=== PATIENT | male | born 1960 | race Two or more races ===

== ENCOUNTER 2024-06-02 23:18 | Emergency (ER) | payer MEDICAID, SELFPAY ==
[2024-06-02 23:36] VITALS: BP 155/82; PULSE 73; RESP 18; TEMP 36.8; O2SAT 97
--- NOTE | 2024-06-02 23:38 | PD.EDRME ---
Rapid Medical Screening Exam RME Arrival date/time: 06/02/24 23:18 64 yo m present to ED for c/o elevated blood glucose, headache, abd. chest pain today I have greeted and performed a focused initial assessment of this patient. A comprehensive ED assessment and evaluation of the patient, analysis of all test results, and completion of the medical decision making process will be conducted by additional ED providers. Chief Complaint: General Adult/Misc Complain Time Seen by Provider: 06/02/24 23:32 Vital signs: Vital Signs Temperature 98.3 F 06/02/24 23:36 Pulse Rate 73 06/02/24 23:36 Respiratory Rate 18 06/02/24 23:36 Blood Pressure 155/82 H 06/02/24 23:36 Pulse Oximetry (%) 97 06/02/24 23:36 Oxygen Delivery Method Room Air 06/02/24 23:36
--- NOTE | 2024-06-03 00:42 | PD.EDABDPN ---
ED Abdominal Pain RME/HPI General Chief Complaint: General Adult/Misc Complain Stated complaint: BLOOD SUGAR HIGH Time seen by provider: 06/02/24 23:32 Arrival date/time: 06/02/24 23:18 RME / HPI RME / HPI narrative: 06/02/24 23:18 64 yo m present to ED for c/o elevated blood glucose, headache, abd. chest pain today I have greeted and performed a focused initial assessment of this patient. A comprehensive ED assessment and evaluation of the patient, analysis of all test results, and completion of the medical decision making process will be conducted by additional ED providers. This section includes all my notes and documentations, including HPI, PE, and ED course. Sander Villanueva MD HPI: 64 y/o male w/ Hx of GERD, Hypothyroidism, Type II DM, and Hypertension presents to ED c/o blood sugar of 350, headache, nausea, and dry-heaving x approximately 5 hours ago. Patient also c/o abdominal pain and chest pain and dysuria. Denies any cough or fever. Patient takes 20 units of insulin each morning and 10 units at night. No other complaints. ROS: All negative except as documented in HPI. Physical Exam: General: Alert and oriented. Appearance of malaise noted. Eyes: Conjunctivae and lids clear. EOMI. PERRL. ENT: No nasal congestion. Pharynx normal. Tympanic membrane normal bilaterally. Neck: Supple. No carotid bruit. No JVD. Heart: RRR. Lungs: No respiratory distress. Good air movement. No rhonchi, wheezing, rales. Chest: No tenderness. Abdomen: Soft with diffuse tenderness, difficult to localize. Normal bowel sounds. No distension. No rebound or guarding. Back: No CVA tenderness. Legs: No clubbing, cyanosis, edema. Skin: Warm and dry. Neuro: Alert and oriented X 3. Cranial Nerves II-XII grossly intact. No peripheral motor deficits. I ordered Zofran ODT and two Tylenol #3 and regular insulin 10 units SC and diagnostic tests. At 6 AM on 06/03/24, the care of the patient was transferred to Dr. Hearn. Sander Villanueva MD Related Data Home Medications ?Medication ?Instructions ?Recorded ?Confirmed Metformin Hcl 850 mg PO BID ##0 09/09/17 05/02/19 levothyroxine 100 mcg capsule 100 mcg PO QDAY 09/09/17 05/02/19 lisinopril 20 mg tablet 20 mg PO QDAY 09/09/17 05/02/19 omeprazole 20 mg tablet,delayed 20 mg PO QDAY #0 tabs 09/09/17 05/02/19 release Previous Rx's ?Medication ?Instructions ?Recorded ibuprofen 800 mg tablet 800 mg PO TID PRN pain #30 tabs 05/02/19 psyllium husk 3 gram/5.4 gram oral 1 tbsp PO QDAY #284 grams 08/09/20 powder ibuprofen 800 mg tablet 800 mg PO Q8H PRN pain #30 tabs 08/07/21 tramadol 37.5 mg-acetaminophen 325 1 tab PO TID PRN pain #15 tabs 08/07/21 mg tablet (Ultracet) tramadol 50 mg tablet 50 mg PO BID PRN pain #20 tabs 05/01/22 amlodipine 2.5 mg tablet 2.5 mg PO QDAY #30 tabs 06/28/22 Allergies Allergy/AdvReac Type Severity Reaction Status Date / Time No Known Allergies Allergy Verified 06/02/24 23:19 Review of Systems Review of Systems Systems Reviewed: All systems reviewed, normal except as documented Narrative Review of Systems: Refer to HPI above. Past Medical History Past Medical History CARDIAC: Positive Hypertension GASTROINTESTINAL: Positive Gastroesophageal Reflux Disease ENDOCRINE: Positive Diabetes Mellitus Type 2 and Hypothyroidism ED Exam Narrative Physical exam: Refer to HPI above. Course Quality Measures none Orders Category Date Time Status Bedside COVID-19 Antigen Test NOW Care 06/02/24 23:37 Completed Bedside Influenza A&B Antigen Test NOW Care 06/02/24 23:37 Completed Blood glucose [Bedside Blood Glucose] NOW Care 06/02/24 23:32 Completed Glucose [Bedside Blood Glucose] NOW Care 06/03/24 02:[address] chest abdomen pelvis wo Stat Exams 06/03/24 01:[address] head/brain wo con Stat Exams 06/03/24 01:33 Taken Amylase Stat Lab 06/03/24 01:43 Completed Beta Hydroxybutyrate Stat Lab 06/03/24 01:43 Completed CBC Stat Lab 06/03/24 01:43 Completed CMP [Comprehensive Metabolic Panel] Stat Lab 06/03/24 01:43 Completed Lactate (Lactic Acid) Stat Lab 06/03/24 01:43 Completed Lipase Stat Lab 06/03/24 01:43 Completed Magnesium Stat Lab 06/03/24 01:43 Completed UA [Urinalysis] Stat Lab 06/02/24 23:45 Completed VBG [Venous Blood Gas] Stat Lab 06/03/24 01:43 Completed ACETAMINOPHEN w/COD 300-30 [Tylenol w/Cod #3] Med 06/03/24 01:32 Discontinued 2 tab PO X1 ONE Insulin Regular Med 06/03/24 01:32 Discontinued 10 unit SC X1 ONE Ondansetron Odt [Zofran Odt] Med 06/03/24 01:32 Discontinued 4 mg PO X1 ONE Vital Signs Vital signs: Vital Signs Temperature 98.3 F 06/02/24 23:36 Pulse Rate 73 06/02/24 23:36 Respiratory Rate 18 06/02/24 23:36 Blood Pressure 155/82 H 06/02/24 23:36 Pulse Oximetry (%) 97 06/02/24 23:36 Oxygen Delivery Method Room Air 06/02/24 23:36 Abdominal Pain MDM MDM Narrative MDM Narrative:: Scribe Attestation: IMarcy, am scribing for and in the presence of Dr. Villanueva. Provider Notation: Although this document has been carefully reviewed, there may still be some phonetic and other typographical errors. These errors are purely grammatical due to imperfections in the software program and should not be construed in any way to compromise the substance of the patient's medical care during this visit. 64 y/o male w/ Hx of GERD, Hypothyroidism, Type II DM, and Hypertension presents to ED c/o blood sugar of 350, headache, nausea, and dry-heaving x approximately 5 hours ago. Patient also c/o RLQ abdominal pain and dysuria x 2 years and upper abdominal pain x 6 months. Denies any cough or fever. Patient takes 20 units of insulin each morning and 10 units at night. Patient data External records reviewed:: [facility] previous records (Prior ED records reviewed from 07/31/22. Patient was seen for Chronic cough.) Clinical information provided by:: patient Social determinants that could affect healthcare access:: none Patient has the following chronic illnesses:: GERD, Hypothyroidism, Type II DM, and Hypertension How is presenting disease/condition affected by chronic disease/condition?: exacerbated by Evaluation data The following diagnostics were reviewed and interpreted by me:: lab results and radiology exam(s) Lab and/or radiology exams considered but not ordered:: None Interpretation Summary: Complete diagnostic tests are pending. Medications / Prescriptions Medications or Prescriptions considered but not ordered:: None Medication administrations:: Medication Administration History Discontinued Medications Acetaminophen/Codeine Phosphate (Acetaminophen W/Cod 300-30 Tablet) 2 tab PO X1 ONE Stop: 06/03/24 01:33 Last Admin: 06/03/24 02:01 Dose: 2 tab Documented By: MELY Insulin Human Regular (Insulin Hum Regular 1 Unit/0.01 Ml (Per Unit)) 10 unit SC X1 ONE Stop: 06/03/24 01:33 Last Admin: 06/03/24 02:02 Dose: 10 unit Documented By: MELY Co-signed By: BLAISE Ondansetron HCl (Ondansetron Odt 4 Mg Tabrap) 4 mg PO X1 ONE; Protocol Stop: 06/03/24 01:33 Last Admin: 06/03/24 02:01 Dose: 4 mg Documented By: MELY Zofran, Tylenol with Codeine, Insulin. Consultations Consultation(s) initiated? (list below): No Diagnosis Differential diagnosis abdominal pain: abdominal pain, acute appendicitis, calculus of kidney, constipation, diverticulitis, gastroenteritis, pancreatitis, small bowel obstruction and other (CVA, brain tumor, RI, DKA, UTI, pneumonia, sepsis) Most likely diagnosis given after review of the tests above:: Complete diagnostic test results are pending. Admission Indicated Admission indicated?: not indicated Explain why admission is indicated or not indicated:: Complete diagnostic test results are pending. Admission Request Was there a request for admission?: No Disposition Plan Disposition Plan: other (specify) (Care of the patient was transferred to Dr. Hearn. ) Discharge Plan Prescriptions/Referrals Prescriptions/Med Rec: No Action levothyroxine 100 mcg capsule 100 mcg PO QDAY lisinopril 20 mg tablet 20 mg PO QDAY ibuprofen 800 mg tablet 800 mg PO TID PRN (Reason: pain) Qty: 30 0RF Metformin Hcl 850 MG tablet 850 mg PO BID Qty: 0 omeprazole 20 mg tablet,delayed release (DR/EC) 20 mg PO QDAY Qty: 0 tramadol-acetaminophen [Ultracet] 37.5-325 mg tablet 1 tab PO TID PRN (Reason: pain) Qty: 15 0RF Rx Instructions: Instructions in Mexican ibuprofen 800 mg tablet 800 mg PO Q8H PRN (Reason: pain) Qty: 30 0RF Rx Instructions: Instructions in Mexican psyllium husk 3 gram/5.4 gram powder 1 tbsp PO QDAY Qty: 284 0RF Rx Instructions: mix into at least 8 oz of water or juice before administering tramadol 50 mg tablet 50 mg PO BID PRN (Reason: pain) Qty: 20 0RF amlodipine 2.5 mg tablet 2.5 mg PO QDAY Qty: 30 0RF Referrals: No Primary/Family,Physician [Primary Care Provider] - In 1 week Problem List Clinical Impression: Hyperglycemia, Headache, Chest pain, Abdominal pain Patient/Caregiver Discharge Instructions Print Language: Mexican
--- NOTE | 2024-06-03 01:33 | XR_ITS ---
Examination: CT chest, without intravenous contrast. CT abdomen, without intravenous contrast. CT pelvis, without intravenous contrast. 2-D sagittal and coronal reconstructions. 3-D reconstructions. Date and time of exam:June 03, 2024 0338 hours INDICATIONS: Severe chest and abdominal pain today COMPARISON: CT chest August 26, 2022 CTDI vol (mgy) 6.20 DLP (MGycm)121 Technique: Multiple CT images, 3.0 mm slice thickness, obtained chest, abdomen, pelvis, with the high-resolution 64 slice scanner.. Sagittal and coronal 2-D reconstructions are obtained. 3-D reconstructions Low dose protocols were performed. One or more of the following dose reduction techniques were used; automated exposure control, adjustment of the mA and/or KV according to patient size, use of iterative reconstruction technique. Findings: Again noted cavitary lesion left apex, 4 cm, thick-walled Multiple bilateral pulmonary nodules, subcentimeter No lobar pneumonia No focal liver or splenic lesion No gallstones No pancreatic or adrenal mass No renal or ureteral calculi, no hydronephrosis Normal appendix No bowel obstruction Abundant stool throughout the colon Bladder intact AP prostate dimension 4.1 cm IMPRESSION: Cavitary lesion left apex again noted with multiple subcentimeter pulmonary nodules, differential would include infectious processes, underlying pulmonary neoplasm not excluded, recommend follow-up CT chest without contrast in 3 months Abundant stool throughout the colon
--- NOTE | 2024-06-03 01:33 | XR_ITS ---
Examination: CT brain head without contrast. 2-D sagittal coronal reconstructions Date and time of exam:June 03, 2024 0336 hours INDICATIONS: Severe head pain today CTDI: vol (mGy):52.9 DLP: (mGycm):1095 Technique: Multiple CT axial sections of the brain have been obtained, 5 mm slice thickness. Contrast has not been administered. 2-D sagittal, coronal reconstructions have been obtained Low dose protocols were performed. One or more of the following dose reduction techniques were used; automated exposure control, adjustment of the mA and/or KV according to patient size, use of iterative reconstruction technique. Findings: No significant ventricular enlargement. Intra-axial or extra-axial hemorrhage density is not seen. No mass effect or midline shift Basal cisterns are not remarkable. Fourth ventricle is midline. Cranial vault intact. Impression: Negative for acute hemorrhage, mass effect or midline shift
[2024-06-03 01:57] LABS: Lactate (Lactic Acid) 1.1 mMol/L (0.4-2.0)
[2024-06-03 01:58] LABS: Base Excess, Venous 2 (-3-3); Basophils % (Auto) 0 % (0-2.5); Eosinophils # (Auto) 0.2 Thou/mm3 (0.0-0.5); Eosinophils % (Auto) 2 % (0-10); Hematocrit 35.6 % (41.0-53.0); Hemoglobin 12.3 g/dL (13.5-16.0); Immature Granulocytes % (Auto) 0 % (0-0); Immature Granulocytes Auto 0.02 Thou/mm3 (0.00-0.00); Lymphocytes # (Auto) 1.7 Thou/mm3 (1.0-4.8); Lymphocytes % (Auto) 23 % (10-50); Mean Corpuscular HGB Conc 34.6 g/dl (31.0-37.0); Mean Corpuscular Hemoglobin 30.6 pg (25.0-35.0); Mean Corpuscular Volume 89 fL (80-100); Monocytes # (Auto) 0.5 Thou/mm3 (0.0-0.8); Monocytes % (Auto) 7 % (0-12); Neutrophils # (Auto) 5.1 Thou/mm3 (1.8-7.7); Neutrophils % (Auto) 68 % (37-80); Nucleated Red Blood Cell % 0 /100 WBC (0); O2 Saturation, Venous 88 % (96-97); PCO2, Venous 42 mmHg (36-56); PO2, Venous 53 mmHg (15-58); Platelet Count 190 Thou/mm3 (140-440); RDW Standard Deviation 44.5 fL (35.1-43.9); Red Blood Count 4.02 Miln/mm3 (4.50-5.90); White Blood Count 7.5 Thou/mm3 (3.8-10.6); pH, Venous 7.41 (7.33-7.66)
[2024-06-03] MEDS: ACETAMINOPHEN w/COD 300-30 TABLET 2 TAB PO (02:01)
[2024-06-03] MEDS: ONDANSETRON ODT 4 MG TABRAP PO (02:01)
[2024-06-03] MEDS: INSULIN HUM REGULAR 1 UNIT/0.01 ML (PER UNIT) 10 UNIT SC (02:02)
[2024-06-03 02:38] LABS: Alanine Aminotransferase 14 U/L (10-49); Albumin, Serum 3.7 gm/dL (3.4-4.8); Albumin/Globulin Ratio 1.2 (1.2-2.2); Alkaline Phosphatase 116 U/L (46-116); Amylase 52 U/L (30-118); Anion Gap 5 (7-16); Aspartate Amino Transferase 12 U/L (0-34); BUN/Creatinine Ratio 16 Ratio (12-20); Bilirubin,Total 0.3 mg/dL (0.3-1.2); Blood Urea Nitrogen 26 mg/dL (9-23); Calcium 8.9 mg/dL (8.3-10.6); Calcium (Corrected) 9.1 mg/dL (8.5-10.1); Carbon Dioxide 25.9 mMol/L (20.0-31.0); Chloride 106 mMol/L (98-107); Creatinine (Component) 1.6 mg/dL (0.6-1.3); Glucose 330 mg/dL (74-106); Lipase 33 U/L (12-53); Magnesium 1.9 mg/dL (1.6-2.6); Osmolality,Calculated 291 (275-295); Potassium 4.2 mMol/L (3.4-5.1); Sodium 137 mMol/L (136-145); Total Protein 6.7 gm/dL (5.7-8.2); eGFR 48 See Note
[2024-06-03 03:18] LABS: Collection Type, Urine Voided; Squamous Epithelial Cell,Urine 0 /hpf (0-5); WBC,Urine 0 /hpf (0-5)
[2024-06-03 03:32] LABS: Bilirubin,Urine Negative (Negative); Blood,Urine Trace (Negative); Clarity,Urine Clear (Clear/Hazy); Color,Urine Lt-Yellow (Lt Yel-Yel); Glucose, Urine 4+ (Negative); Ketones,Urine Negative (Negative); Leukocyte Esterase,Urine Negative (Negative); Nitrite,Urine Negative (Negative); PH,Urine 6.5 (5.0-7.0); Protein,Urine 2+ (Neg - Trace); RBC,Urine 7 /hpf (0-3); Specific Gravity,Urine 1.015 (1.001-1.035); Urobilinogen,Urine Negative mg/dL (0.0-1.0)
--- NOTE | 2024-06-03 03:49 | PRELIM_ITS ---
CT scan of the head without intravenous contrast (axial sections with sagittal and coronal reformats). June 03, 2024 0336 hours Clinical History: Severe headache Comparison: None Findings: There is involutional atrophy of the cerebral hemispheres and cerebellum. There is no intracranial hemorrhage, extra-axial collection, mass, mass-effect or midline shift. There is good vallejo-white differentiation. There is no CT evidence of acute large vascular territorial infarct. Ventricles are not enlarged or effaced. There is atherosclerotic calcification along the carotid siphons. Visualized paranasal sinuses and tympanomastoid cavities are clear. The bony calvarium is intact. Impression: No intracranial hemorrhage, mass-effect or midline shift. No CT evidence of acute large vascular territorial infarct. Report Electronically Signed By: Yony Izquierdo 06/03/2024 3:48:46 AM [EST]
--- NOTE | 2024-06-03 04:26 | PRELIM_ITS ---
CT scan of the chest, abdomen and pelvis without intravenous contrast (axial sections with sagittal and coronal reformats). June 03, 2024 0338 hours Clinical History: Chest/abdominal pain Comparison: None Findings: Study is limited without IV contrast. Chest: Heart is normal in size. There is no pericardial or pleural effusion. There is no thoracic aortic aneurysm. Thyroid is not visualized. There is no thoracic lymphadenopathy. There is a cavitating lesion in within the left lung apex measuring 4 cm in AP dimension and 2.9 cm in transverse dimension with adjacent reticular densities/pleural thickening there maybe some layering fluid within the cavitating left apical lesion. There is some peribronchial thickening within the left upper lobe. There is minimal scarring within the right lung apex. There is no pneumothorax. There is minimal subsegmental atelectasis within the lung bases. There is a 4.5 mm nonspecific solid-appearing right apical pulmonary nodule (series 2 image 23). Subcentimeter pulmonary nodules are also noted more inferiorly within the right upper lobe (image 51, image 53, image 55). Few juxtapleural nodular densities are noted within the right lower lobe. There is a subcentimeter pulmonary nodule within the left lower lobe (image 108). There is subsegmental atelectasis within the lungs. There is no acute osseous abnormality. There is degenerative change in the thoracic spine. Abdomen/pelvis: The unenhanced liver, gallbladder, spleen, pancreas and adrenals are unremarkable. 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 Right kidney also appears somewhat ptotic. Urinary bladder is of normal partially filled configuration. Prostate is nonenlarged. There is underdistention of the stomach which limits evaluation. There is some ingested type material within the stomach. There is large fecal load within the colon. There is no bowel obstruction. Appendix is normal. There is no free intraperitoneal air or fluid. There is degenerative change within the spine. Impression: 1. Cavitating left apical lung lesion may be post infectious/inflammatory although cavitating malignancy should be excluded. Nonspecific solid-appearing subcentimeter pulmonary nodules bilaterally, right greater than left. Recommend follow-up CT chest in 3 months or reevaluate findings. 2. Large fecal load in the colon suggesting constipation. Report Electronically Signed By: Yony Izquierdo 06/03/2024 4:26:26 AM [EST]
[2024-06-03 05:39] VITALS: BP 131/69; PULSE 77; RESP 16; O2SAT 98
[2024-06-03 06:40] VITALS: RESP 18
== END 2024-06-03 06:41 | disposition home or self-care (01) ==
PROVIDERS: Physician Assistant; Emergency Provider Emergency Medicine
DX: E11.65 Type 2 diabetes mellitus with hyperglycemia (principal); E03.9 Hypothyroidism, unspecified; K21.9 Gastro-esophageal reflux disease without esophagitis; I10 Essential (primary) hypertension
CPT/HCPCS: 36415; 70450; 71250; 74176; 80053; 81001; 82010; 82150; 82803; 83605; 83690; 83735; 84484; 85025; 87400; 87811; 96372; 99284; J1815; Q0162; A9270